=== PATIENT | male | born 1975 | race Caucasian/White ===

== ENCOUNTER 2017-05-16 11:49 | Day surgery (SDC) | payer OTHER ==
[~2017-05-16 11:49] MED LIST: Buffered Lidocaine 0.9% SYRIN* 5 ML/SYR SYRINGE INTRADERM ONE; Famotidine IV* 10 MG/ML 2 ML (20 mg) IV ONE; PROCHLORPERAZINE INJ 5 MG/ML 2 ML VIAL IV PRN; Scopolamine 1.5 mg* PATCH TRANSDERM PRN; oxyCODONE/Acetamin 5/325 MG* TAB PO PRN
[2017-05-16] MEDS ORDERED: Buffered Lidocaine 0.9% SYRIN* 5 ML/SYR SYRINGE ONE (12:03)
[2017-05-16] MEDS ORDERED: Clindamycin 900 MG IVPREMIX(* 900 MG/50 ML SDV IV ONE (12:03)
[2017-05-16] MEDS ORDERED: Famotidine IV* 10 MG/ML 2 ML (20 mg) ONE (12:03)
[2017-05-16] MEDS ORDERED: KETAMINE HCL* 50 MG/ML 10 ML VIAL ONE (14:12)
[2017-05-16] MEDS ORDERED: fentaNYL* 50 MCG/ML 2 ML VIAL (100 MCG VIAL) ONE ×2 (14:12→16:09)
[2017-05-16] MEDS ORDERED: Midazolam* 1 MG/ML 5 ML VIAL (5 MG) ONE (14:12)
[2017-05-16] MEDS ORDERED: Dexamethasone IV* 4 MG/ML 1 ML (4 MG) ONE (14:37)
[2017-05-16] MEDS ORDERED: Ketorolac INJ* 30 MG/ML 1 ML VIAL ONE (14:37)
[2017-05-16] MEDS ORDERED: Ondansetron INJ* 2 MG/ML VIAL ONE (14:37)
[2017-05-16] MEDS ORDERED: Propofol* 10 MG/ML 20 ML BTL IV PUSH ONE (14:37)
[2017-05-16] MEDS ORDERED: Lidocaine 2% PF * 5 ML VIAL ONE (14:37)
[2017-05-16] MEDS ORDERED: Morphine INJ* 10 MG/ML 1 ML CARPUJECT ONE ×2 (14:38→16:09)
[2017-05-16] MEDS ORDERED: Phenylephrine IV* 40 MCG/ML 10 ML SYRINGE ONE (14:39)
[2017-05-16] MEDS ORDERED: EPHEDrine (Pressors)* 50 MG/ML VIAL ONE (15:06)
[2017-05-16] MEDS ORDERED: Bupivacaine 0.25% SDV* 30 ML ONE (15:35)
[2017-05-16] MEDS: Morphine INJ* 2 MG/ML 1 ML CARPUJECT IV PRN ×5 (16:11→17:09)
[2017-05-16] MEDS: fentaNYL* 50 MCG/ML 2 ML VIAL (100 MCG VIAL) IV PRN ×4 (16:15→16:37)
[2017-05-16] MEDS ORDERED: Morphine INJ* 4 MG/ML 1 ML CARPUJECT ONE (16:43)
[2017-05-16 17:12] VITALS: BP 127/61
--- NOTE | 2017-05-16 21:04 | RAD ---
CPT II Codes: 6045F INDICATION: Minimally displaced right radial head fracture. TECHNIQUE: Intraoperative fluoroscopy was provided during intramedullary screw ORIF of the right radial head. FINDINGS: 5 spot films depict screw fixation of the fractured right radial head. Fluoroscopy time: 16.7 seconds IMPRESSION: As above.
--- NOTE | 2017-05-17 12:40 | OP ---
DATE OF OPERATION: 05/16/17 [facility] DATE OF : 77 SURGEON: Dev Morales MD COCONUT COOKER: PRABHAKAR Gallegos. An miller head assistant wet process was needed for the entirety of the procedure to aide the positioning of the arm and retraction. ANESTHESIOLOGIST: Dr. Capone. ANESTHESIA: General. PREOPERATIVE DIAGNOSIS: Displaced intraarticular impacted radial head fracture , partial articular. POSTOPERATIVE DIAGNOSIS: Displaced intraarticular impacted radial head fracture , partial articular. OPERATIVE PROCEDURE: Open reduction and internal fixation, right intraarticular radial head fracture. INDICATIONS: Antoine was seen in the clinic a few days ago. He had an impacted right radial head fracture. I talked to him about letting this heal non- operatively versus surgical repair. He wanted to proceed with surgery. Given the amount of impaction, I thought that was very reasonable, in an effort to give him a pain free joint. We talked about risks and benefits including the risk of the elbow instability and wound problems and symptomatic hardware. He elected to proceed. ESTIMATED BLOOD LOSS: 5 mL. COMPLICATIONS: None. FINDINGS: As expected, a very impacted partial articular radial head fracture. DESCRIPTION OF PROCEDURE: Antoine was seen in the preoperative holding area. The correct site, side, and procedure were identified. We came back to the operating room. The arm was prepped and draped in the usual fashion after anesthesia was induced. A time-out was performed. I exsanguinated the arm with the Esmarch and the tourniquet was inflated to 250 mmHg. I then made a longitudinal incision and utilizing the Sai-Langenbeck type incision. Dissection was carried down through the subcutaneous tissue and full thickness flaps were raised off at the deep fascia. I then abdiaziz out a line from the center of the medial epicondyle to the equator of the radial head. The fascia was released in line with this. The annular ligament was split to expose the fracture site, the hematoma was suctioned out. Everything was irrigated out and the soft tissue was debrided out of the area of impaction to expose the articular cartilage and the articular surface. I then took a narrow osteotome and came just on the inferior margin the radial head and disimpacted the fracture. The fragment was released to mobilize it; it was then brought back up to where it belonged and was reduced anatomically. A void underneath the area of impaction was then filled with crushed, cancellous allograft chips to stabilize the fragment. I then placed two countersunk, 2-0 Synthes lag screws off of the variable angle handset. These achieved good compression across the fragment and also were in appropriate position to wrap the fragment. These were countersunk and completely buried. They were also placed in the safe zone. Once I had the fragment fixed, it was nice and stable. I went ahead and irrigated out the wound. The annular ligament and fascia were closed in 1 layer with an 0-Vicryl suture. The skin was closed with 3-0 nylon suture. Then 0.25% Marcaine was infiltrated into the operative area. Wound was dressed with Xeroform, 4x4s, sterile Webril, and a posterior slab splint with lateral buttress was placed. Tourniquet was deflated, hand pinked up immediately. He was then woken up and taken to the recovery room in stable condition. [id number]/CPS #: [id number] LEELA
[2017-05-19] MEDS ORDERED: Scopolomine PATCH Remove* 1 NOTE MISC PATCH OFF ONE (06:00)
== END 2017-05-16 17:39 | disposition home or self-care (01) ==
LOC: OR 11:49
PROVIDERS: ATTEND Orthopaedic Surgery Hand Surgery
DX: S52.121A Displaced fracture of head of right radius, initial encounter for closed fracture (principal); F17.200 Nicotine dependence, unspecified, uncomplicated; F41.9 Anxiety disorder, unspecified; V28.4XXA Motorcycle driver injured in noncollision transport accident in traffic accident, initial encounter; Y92.9 Unspecified place or not applicable
CPT/HCPCS: 76000; C1713; C1776; J1100; J1885; J2250; J2270; J2405; J2704; J3010

== ENCOUNTER 2019-06-04 13:35 | Emergency (ER) | payer OTHER ==
[2019-06-04 14:04] VITALS: BP 122/70
--- NOTE | 2019-06-04 14:39 | UC ---
Elbow Pain - HPI Summary HPI Summary: 43 yo male presents with RIGHT elbow pain. He tells me that he has a history of screws and plates to this elbow after an injury years ago. 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 Since that time has had pain to his right elbow that is worse with movement. He is concerned that there is damage to the hardware underneath. Denies numbness or tingling - History of Current Complaint Chief Complaint: UCUpperExtremity Stated Complaint: ELBOW INJURY Time Seen by Provider: 06/04/19 14:39 Hx Obtained From: Patient Severity Initially: Severe Severity Currently: Severe Pain Intensity: 8 Pain Scale Used: 0-10 Numeric - Allergies/Home Medications Allergies/Adverse Reactions: Allergies Allergy/AdvReac Type Severity Reaction Status Date / Time amoxicillin Allergy Hives Verified 06/04/19 14:05 ibuprofen Allergy GI Upset Verified 06/04/19 14:05 phenytoin Allergy Rash Verified 06/04/19 14:05 Home Medications: Home Medications Acetaminophen TAB* [Tylenol TAB*] 975 mg PO Q6H PRN 06/04/19 [History Confirmed 06/04/19] PMH/Surg Hx/FS Hx/Imm Hx - Additional Past Medical History Additional PMH: None - Surgical History Surgical History: Yes Surgery Procedure, Year, and Place: Appendectomy 1999, R elbow - Family History Known Family History: Positive: Non-Contributory - Social History Occupation: Employed Full-time Lives: With Family Alcohol Use: None Alcohol Amount: on naltrexone Substance Use Type: None Smoking Status (MU): Heavy Every Day Tobacco Smoker Type: Cigarettes Amount Used/How Often: 11 ppd Household Exposure Type: Cigarettes - Immunization History Most Recent Tetanus Shot: unknown Review of Systems All Other Systems Reviewed And Are Negative: No Constitutional: Positive: Negative Skin: Positive: Negative Respiratory: Positive: Negative Cardiovascular: Positive: Negative Neurovascular: Positive: Negative Musculoskeletal: Positive: Other: - Right elbow pain Neurological: Positive: Negative Psychological: Positive: Negative Physical Exam - Summary Physical Exam Summary: GENERAL: NAD. WDWN. No pain distress. SKIN: No rashes, sores, lesions, or open wounds. CHEST: No accessory muscle use. Breathing comfortably and in no distress. CV: Pulses intact radial and ulnar. Cap refill <2seconds MSK: RIGHT ELBOW: Mild TTP about medial epicondyle. FROM. Strength 5/5 including cosmetic sales strength. No edema or obvious bony deformities. NEURO: Alert. Sensations intact hand and all fingers. PSYCH: Age appropriate behavior. Triage Information Reviewed: Yes Vital Signs: Initial Vital Signs Temp 99.3 F 06/04/19 13:59 Pulse 87 06/04/19 13:59 Resp 16 06/04/19 13:59 BP 122/70 06/04/19 13:59 Pulse Ox 98 06/04/19 13:59 Vital Signs Reviewed: Yes Diagnostics - Radiology Elbow Radiology Interpretation Completed By: Radiologist Summary of Radiographic Findings: REPORT AND IMPRESSION: #. Negative for significant fat pad displacement to indicate effusion. Negative for fracture or loosening of the 2 internal fixation screws at the radial head. Minimal residual radial head fracture plane similar to the prior exam. #. No compelling new radial head fracture plane evident. #. 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 #. Normal articular alignment. #. Unremarkable soft tissue contours. Elbow Pain Course/Dx - Course Course Of Treatment: XR as above. Suspect contusion. Advised to RICE and f/u with Dr. Estrada if symptoms do not improve - Differential Dx/Diagnosis Provider Diagnosis: Elbow pain Discharge ED - Sign-Out/Discharge Documenting (check all that apply): Patient Departure All imaging exams completed and their final reports reviewed: Yes - Discharge Plan Condition: Stable Disposition: HOME Patient Education Materials: Contusion in Adults (ED) Forms: *Work Release Referrals: Lenin Cunningham MD [Primary Care Provider] - Blake Estrada MD [Medical Doctor] - If Needed Additional Instructions: If you develop a fever, shortness of breath, chest pain, new or worsening symptoms - please call your PCP or go to the ED immediately. 1) The X-Ray of your elbow did not show any fractures and the hardware appears intact 2) I suspect the pain is from the impact and will improve with rest, ice, and time. - Billing Disposition and Condition Condition: STABLE Disposition: Home - Attestation Statements Provider Attestation: Per institutional requirements, I have reviewed the chart, however, I was not consulted specifically or made aware of this patient by the midlevel provider. I did not personally evaluate, interact with , or disposition this patient.
== END 2019-06-04 14:56 | disposition home or self-care (01) ==
LOC: UCEAST 13:35
DX: M25.521 Pain in right elbow (principal); F17.210 Nicotine dependence, cigarettes, uncomplicated; M19.021 Primary osteoarthritis, right elbow; Z88.0 Allergy status to penicillin; Z88.8 Allergy status to other drugs, medicaments and biological substances
CPT/HCPCS: 99211; G0463